=== PATIENT | female | born 1970 | race Caucasian/White ===

== ENCOUNTER 2018-11-11 13:56 | Inpatient (IN) | payer SELFPAY ==
[~2018-11-11] VITALS: Ht 177.8 cm; Wt 137.0 kg
[2018-11-11 14:18] LABS: Urine WBC None Seen /hpf (0 - 5)
[2018-11-11 14:27] LABS: Urine Bacteria NONE SEEN /hpf (None Seen); Urine Blood Negative /uL (Negative); Urine Specific Gravity 1.009 (1.001-1.035)
[2018-11-11] MEDS ORDERED: methylPREDNISolone SOD SUCC 125 MG/2 ML VL IV ONE (14:30)
[2018-11-11] MEDS ORDERED: ASPirin 81 mg TAB PO ONE (14:30)
[2018-11-11 14:54] LABS: Basophils # (auto) 0.2 uL; Basophils % (auto) 1.4 % (0.0-2.0); Eosinophils # (auto) 0.3 uL; Eosinophils % (auto) 2.5 % (0.0-7.0); Hematocrit 44.3 % (36.0-46.0); Hemoglobin 15.3 g/dL (12.2-16.2); Lymphocytes # (auto) 2.3 uL; Lymphocytes % (auto) 21.4 % (10.0-50.0); Mean Corpuscular Hemoglobin 33.9 pg (28.0-32.0); Mean Corpuscular Hgb Conc. 34.6 g/dL (32.0-36.0); Mean Corpuscular Volume 97.8 fL (80.0-100.0); Monocytes # (auto) 0.7 uL; Monocytes % (auto) 6.6 % (0.0-12.0); Neutrophils # (auto) 7.3 uL; Neutrophils % (auto) 68.1 % (37.0-80.0); Nucleated Red Blood Cells % 0.2 %; Platelet Count (auto) 357 10^3/uL (140-450); Red Blood Cells 4.53 10^6/uL (4.0-5.20); Red Cell Distribution Width 13.7 % (11.8-14.3); White Blood Cell 10.7 10^3/uL (4.4-10.8)
[2018-11-11 15:12] LABS: Alanine Aminotransferase 29 U/L (13-56); Albumin 3.4 g/dL (3.4-5.0); Anion Gap 9 (5-15); Blood Urea Nitrogen 13 mg/dL (7-18); Calcium 8.8 mg/dL (8.5-10.1); Carbon Dioxide 25 mmol/L (21-32); Chloride 106 mmol/L (98-107); Glucose 88 mg/dL (74-106); Potassium 3.7 mmol/L (3.5-5.1); Sodium 140 mmol/L (136-145)
[2018-11-11 15:17] LABS: Alkaline Phosphatase 93 U/L (45-117); Aspartate Aminotransferase 25 U/L (15-37); BUN/Creatinine Ratio 15.3; Bilirubin, Total 0.3 mg/dL (0.2-1.0); GFR African American 92 mL/min; GFR Non-African American 76 mL/min; Total Protein 7.4 g/dL (6.4-8.2)
[2018-11-11 15:27] LABS: INR < 0.93 (0.9-1.15); Partial Thromboplastin Time 26.4 sec (23.64-32.05)
[2018-11-11] MEDS ORDERED: IOHEXOL 350 MG/ML 100ML IJ ONE (16:34)
[2018-11-11] MEDS ORDERED: traMADol HCL 50 MG TAB PO PRN (18:00)
[2018-11-11] MEDS ORDERED: NITROGLYCERIN 0.4 MG SL TAB SL PRN (18:00)
[2018-11-11] MEDS ORDERED: MORPHINE SULF INJ 2 MG/ML SYRINGE 1ML IV PRN (18:00)
[2018-11-11] MEDS ORDERED: PROMETHAZINE HCL 25 MG/ML 1ML IV PRN (18:00)
[2018-11-11] MEDS ORDERED: ACETAMINOPHEN 500 MG TAB PO PRN (18:00)
[2018-11-11] MEDS: SODIUM CHLORIDE 0.9% 1,000 ML IV SCH (18:31)
[2018-11-11] MEDS: ENOXAPARIN SOD 40 MG/0.4 ML SYRINGE SC SCH (18:31)
--- NOTE | 2018-11-11 20:45 | NUR ---
Telemetry admit from [facility] PEREZJANENE admitted to Telemetry unit. Patient oriented to Gemma CarusoRN primary RN, unit, room, bed, and unit policies regarding patient care and visiting hours. Patient now on continuous telemetry monitoring, tele box #62 and telemetry reading on arrival to unit is NSR. Patient on room air, ambulatory. A&Ox4, no acute S/S of SOB, distress or pain, weighed by bed scale and encouraged to call if they need something. All questions and concerns addressed, patient verbalized understanding. Bed in lowest locked position, side rails up x 2, call light within reach. Will continue to monitor and continue care.
[2018-11-11 21:03] VITALS: BP 136/92
[2018-11-11 21:26] VITALS: BP 136/92
[2018-11-11 21:43] LABS: Alcohol, Urine < 3.0 mg/dL (0-5); Amphetamine Screen, Urine NEGATIVE (NEGATIVE); Barbiturate Scree,Urine NEGATIVE (NEGATIVE); Benzodiazephine Screen, Urine NEGATIVE (NEGATIVE); Cannabinoid Screen, Urine NEGATIVE (NEGATIVE); Cocaine Screen, Urine NEGATIVE (NEGATIVE); Opiate Scree,Urine NEGATIVE (NEGATIVE); Phencyclidine Screen, Urine NEGATIVE (NEGATIVE)
[2018-11-11] MEDS: methylPREDNISolone SOD SUCC 40 MG/ML VL IV SCH (21:45)
[2018-11-11] MEDS: METOPROLOL TARTRATE 25 MG TAB PO SCH (21:45)
[2018-11-11] MEDS: ATORVASTATIN 20 MG TAB PO SCH (21:47)
[2018-11-11] MEDS: TEMAZEPAM 15 MG CAP PO PRN (23:15)
[2018-11-12] VITALS (7 sets, daily range): BP systolic 127–152; BP diastolic 70–98
[2018-11-12] MEDS: SODIUM CHLORIDE 0.9% 1,000 ML IV SCH ×2 (07:20→20:40)
--- NOTE | 2018-11-12 07:30 | NUR ---
RECEIVED REPORT FROM NIGHT NURSE. PATIENT RESTING IN BED, NO DISTRESS NOTED. WILL CONTINUE TO MONITOR.
[2018-11-12] MEDS: ASPirin 81 mg TAB PO SCH (10:00)
[2018-11-12] MEDS: PANTOPRAZOLE 40 MG TAB PO SCH (10:00)
[2018-11-12] MEDS: NITROGLYCERIN 0.2MG/HR TOPICAL PATCH TD SCH (10:00)
[2018-11-12] MEDS: methylPREDNISolone SOD SUCC 40 MG/ML VL IV SCH (10:00)
[2018-11-12] MEDS: METOPROLOL TARTRATE 25 MG TAB PO SCH ×2 (10:01→21:37)
[2018-11-12 11:34] LABS: Cholesterol 194 mg/dL (< 200); Triglycerides 112 mg/dL (< 150)
[2018-11-12 11:36] LABS: HDL Cholesterol 67 mg/dL (40-59); LDL Cholesterol 114 mg/dL (< 100)
[2018-11-12] MEDS ORDERED: LOSARTAN POTASSIUM 25 MG TAB PO ONE (13:00)
--- NOTE | 2018-11-12 17:30 | NUR ---
PATIENT COMPLAINING OF HEART BURN AFTER EATING LUNCH, SHE STATED THAT AT HOME SHE WOULD DRINK BAKING SODA, AND IS ASKING FOR SOME MEDICATION. PAGED RPG PROGRAMMER HOSPITALIST.
[2018-11-12] MEDS ORDERED: SUCRALFATE 1 GM/10 ML ORAL SUSP PO ONE (17:45)
--- NOTE | 2018-11-12 17:47 | NUR ---
SPOKE TO GUARD MANAGER HOSPITALIST, ORDERS RECEIVED, WILL PLACE AND CARRY OUT.
[2018-11-12] MEDS: ENOXAPARIN SOD 40 MG/0.4 ML SYRINGE SC SCH (17:55)
[2018-11-12] MEDS ORDERED: MILK OF MAGNESIA 30ML SUSP PO PRN (18:00)
[2018-11-12] MEDS: IPRATROPIUM BROM 0.5 MG/2.5ML INH SOL NEB SCH (19:17)
[2018-11-12] MEDS: ALBUTEROL SULF 2.5 MG/0.5ML(0.5%) NEB SOLN NEB SCH (19:17)
--- NOTE | 2018-11-12 19:30 | NUR ---
Opening Shift Note Assumed care of patient, alert and oriented x 4. No S/S of distress/SOB or pain. On room air and ambulatory. NPO after midnight for stress test 11/13. Bed in lowest locked position, side rails up x 2, call light within reach. Instructed on POC and to call for assist PRN, will continue to monitor for changes Q1hr and PRN.
[2018-11-12] MEDS: ATORVASTATIN 20 MG TAB PO SCH (21:36)
[2018-11-12] MEDS: TEMAZEPAM 15 MG CAP PO PRN (21:38)
[2018-11-13] VITALS (7 sets, daily range): BP systolic 101–149; BP diastolic 56–95
[2018-11-13] MEDS: ALBUTEROL SULF 2.5 MG/0.5ML(0.5%) NEB SOLN NEB SCH ×5 (00:39→19:01)
[2018-11-13] MEDS: IPRATROPIUM BROM 0.5 MG/2.5ML INH SOL NEB SCH ×5 (00:39→19:01)
[2018-11-13 06:36] LABS: Calcium 8.8 mg/dL (8.5-10.1); Magnesium 2.7 mg/dL (1.6-2.6); Potassium 4.1 mmol/L (3.5-5.1)
[2018-11-13 06:38] LABS: BUN/Creatinine Ratio 28.2
--- NOTE | 2018-11-13 07:20 | NUR ---
opening note assumed care of patient from bread icer RN. No distress or s/s of shortness of breath. Patient NPO pending stress test. reviewed POC with patient and she verbalized understanding. Bed in lowest position and locked. call light in reach. will continue to monitor
[2018-11-13] MEDS ORDERED: ADENOSINE 115 MG in GIVE UN-DILUTED 0 ML IV ONE (08:30)
--- NOTE | 2018-11-13 08:50 | NUR ---
IV insertion IV access obtained, via clean sterile technique by inserting 22 gauge catheter at left upper arm after 2 attempt(s). IV secured properly. No trauma to site. Patient tolerated well. NOTE: []
--- NOTE | 2018-11-13 09:15 | NUR ---
Patient taken to stress lab.
--- NOTE | 2018-11-13 10:30 | NUR ---
Patient returned to the floor. No distress noted.
[2018-11-13] MEDS: PANTOPRAZOLE 40 MG TAB PO SCH (10:55)
[2018-11-13] MEDS: LOSARTAN POTASSIUM 25 MG TAB PO SCH (10:56)
[2018-11-13] MEDS: ASPirin 81 mg TAB PO SCH (10:57)
[2018-11-13] MEDS: METOPROLOL TARTRATE 25 MG TAB PO SCH ×2 (10:57→21:43)
[2018-11-13] MEDS: SODIUM CHLORIDE 0.9% 1,000 ML IV SCH ×2 (11:00→21:45)
[2018-11-13] MEDS: NITROGLYCERIN 0.2MG/HR TOPICAL PATCH TD SCH (11:02)
[2018-11-13] MEDS: methylPREDNISolone SOD SUCC 40 MG/ML VL IV SCH (11:06)
--- NOTE | 2018-11-13 11:45 | NUR ---
Spoke with Dr Joleen Goodrich spoke with Dr. Newton regarding abnormal stress test results, will schedule patient for heart cath tomorrow, 11/14. Will put in orders per Dr. Goodrich.
[2018-11-13] MEDS ORDERED: SODIUM CHLORIDE 0.9% 1,000 ML IV SCH (12:11)
--- NOTE | 2018-11-13 12:19 | NUR ---
Respiratory note: Pt refusing scheduled medneb tx at this time. No s/s of respiratory distress noted. Pt says she will wait until next scheduled tx. Pt aware to call if she changes her mind.
--- NOTE | 2018-11-13 16:40 | NUR ---
Respiratory note: RT called to bedside, pt changed her mind and requested breathing tx. She says she is feeling really SOB and can't wait until next scheduled tx. HR 74, RR 18, POX 97% on room air. Breath sounds diminished exp wheezing. Medneb tx given, pt tolerated well. Will endorse pt care to noc shift RT.
[2018-11-13] MEDS: ENOXAPARIN SOD 40 MG/0.4 ML SYRINGE SC SCH (18:10)
--- NOTE | 2018-11-13 18:44 | NUR ---
PATIENT ROUNDS PATIENT RESTING IN BED WITH FAMILY AT BEDSIDE. NO S/S OF DISTRESS, NO PAIN NOTED AT THIS TIME. WILL ENDORSE CARE TO RESEARCH QUALITY ASSURANCE ANALYST RN.
--- NOTE | 2018-11-13 19:01 | NUR ---
PT SEEN AND FOR SCHEDULED MED NEB TX AT 1901. PT REFUSED THIS TX AT THIS TIME DUE TO RECEIVING HER LAST TREATMENT LATE. SHE STATED SHE JUST HAD ONE NOT TOO LONG AGO AND WOULD LIKE TO SKIP THIS ONE. PT DISPLAYING NO SIGNS OF DISTRESS. HR 67 RR 18 POX 94% ON ROOM AIR. PT AWARE TO CALL FOR RT IF SHE CHANGES HER MIND OR ANY DISTRESS OCCURS.
--- NOTE | 2018-11-13 19:45 | NUR ---
OPENING SHIFT NOTE RECEIVED REPORT FROM DAYSHIFT RN. PATIENT LYING IN BED WATCHING TELEVISION. NO S/S OF DISTRESS OR SOB. PATIENT A/O X4, AMBULATORY. UPDATED PATIENT ON POC, VERBALIZED UNDERSTANDING. BED LOCKED IN LOW POSITION, CALL LIGHT WITHIN REACH. WILL CONTINUE TO MONITOR PATIENT Q1HR AND PRN.
[2018-11-13] MEDS: ATORVASTATIN 20 MG TAB PO SCH (21:43)
[2018-11-13] MEDS: TEMAZEPAM 15 MG CAP PO PRN (21:43)
[2018-11-14] VITALS (8 sets, daily range): BP systolic 122–163; BP diastolic 63–98
[2018-11-14] MEDS: IPRATROPIUM BROM 0.5 MG/2.5ML INH SOL NEB SCH ×3 (00:40→11:01)
[2018-11-14] MEDS: ALBUTEROL SULF 2.5 MG/0.5ML(0.5%) NEB SOLN NEB SCH ×3 (00:40→11:01)
--- NOTE | 2018-11-14 00:40 | NUR ---
Respiratory note: PT SEEN FOR SCHEDULED MED NEB TX AT 0040. PT REFUSED HER TX AGAIN AT THIS TIME. PT STATED THAT SHE HAS A PROCEDURE TOMORROW AND WOULD LIKE TO SKIP HER TREATMENT AND REST UP FOR HER PROCEDURE. PT WAS SLEEPING WHEN ENTERING THE ROOM WITH NO DISTRESS NOTED. HR 61 RR 16 POX 95% ON ROOM AIR.
--- NOTE | 2018-11-14 05:05 | NUR ---
EKG PERFORMED FOR PREOP AND PLACED IN CHART.
[2018-11-14 06:13] LABS: Basophils # (auto) 0.1 uL; Basophils % (auto) 0.7 % (0.0-2.0); Eosinophils # (auto) 0 uL; Hematocrit 42.3 % (36.0-46.0); Hemoglobin 14.5 g/dL (12.2-16.2); Lymphocytes # (auto) 1.6 uL; Lymphocytes % (auto) 14.5 % (10.0-50.0); Mean Corpuscular Hemoglobin 33.2 pg (28.0-32.0); Mean Corpuscular Hgb Conc. 34.3 g/dL (32.0-36.0); Mean Corpuscular Volume 96.8 fL (80.0-100.0); Monocytes # (auto) 0.6 uL; Monocytes % (auto) 5.7 % (0.0-12.0); Neutrophils # (auto) 8.9 uL; Neutrophils % (auto) 79.1 % (37.0-80.0); Platelet Count (auto) 339 10^3/uL (140-450); Red Blood Cells 4.37 10^6/uL (4.0-5.20); Red Cell Distribution Width 13.4 % (11.8-14.3); White Blood Cell 11.2 10^3/uL (4.4-10.8)
[2018-11-14 06:26] LABS: INR < 0.93 (0.9-1.15); Partial Thromboplastin Time 25.1 sec (23.64-32.05)
[2018-11-14 06:35] LABS: BUN/Creatinine Ratio 26.7; Calcium 8.6 mg/dL (8.5-10.1); Potassium 4.2 mmol/L (3.5-5.1)
--- NOTE | 2018-11-14 07:30 | NUR ---
Opening Shift Note Assumed care of patient, awake and alert X4. No S/S of distress/SOB, no pain noted or reported. Respirations are even and unlabored on RA. Updated on POC and instructed to call for assistance PRN, patient verbalized understanding. Bed locked in lowest position, side rails up x2, call light within reach. Will continue to monitor for changes Q1hr and PRN.
[2018-11-14] MEDS: methylPREDNISolone SOD SUCC 40 MG/ML VL IV SCH (08:14)
[2018-11-14] MEDS: METOPROLOL TARTRATE 25 MG TAB PO SCH (09:18)
[2018-11-14] MEDS: PANTOPRAZOLE 40 MG TAB PO SCH (09:18)
[2018-11-14] MEDS: LOSARTAN POTASSIUM 25 MG TAB PO SCH (09:18)
[2018-11-14] MEDS: ASPirin 81 mg TAB PO SCH (09:18)
[2018-11-14] MEDS: NITROGLYCERIN 0.2MG/HR TOPICAL PATCH TD SCH (10:00)
--- NOTE | 2018-11-14 12:00 | NUR ---
Patient taken to factory laborer for procedure
[2018-11-14] MEDS ORDERED: LIDOCAINE 2%HCL (LOCAL ANESTH.) INJ 20ML MDV ONE (12:55)
[2018-11-14] MEDS ORDERED: IOHEXOL 350 MG/ML 100ML IJ ONE (12:55)
[2018-11-14] MEDS ORDERED: VERAPAMIL 2.5MG/ML INJ 2ML VIAL IV ONE (13:22)
[2018-11-14] MEDS ORDERED: ANGIOMAX 250 MG VIAL IV ONE (13:22)
[2018-11-14] MEDS ORDERED: fentaNYL CITRATE 100 MCG/2 ML VL ONE (13:22)
[2018-11-14] MEDS ORDERED: MIDAZOLAM HCL 1MG/1ML-2 ML VIAL ONE (13:23)
[2018-11-14] MEDS ORDERED: SODIUM CHL 0.9% 0 ML ONE (13:23)
[2018-11-14] MEDS ORDERED: HEPARIN SODIUM (PORCINE) 5000 UNITS/ML 1ML VIAL ONE (13:52)
--- NOTE | 2018-11-14 15:05 | NUR ---
Patient back from procedure. No S/S of distress.
[2018-11-14] MEDS: SODIUM CHLORIDE 0.9% 1,000 ML IV SCH (16:21)
--- NOTE | 2018-11-14 17:16 | NUR ---
POST CATH VITAL SIGNS SEE MAR
[2018-11-14] MEDS: ENOXAPARIN SOD 40 MG/0.4 ML SYRINGE SC SCH (17:35)
--- NOTE | 2018-11-14 17:45 | NUR ---
VASC BAND REMOVAL REMOVED 2ML OF AIR EVERY 15 MINUTES AFTER THE FIRST HOUR ON THE FLOOR. BAND FULLY DEFLATED AND REMOVED. NO SIGNS OF SWELLING OR BLEEDING NOTED. PLACED GAUZE AND TEGADERM BANDAGE OVER PUNCTURE SITE. PATIENT TOLERATED WELL. PATIENT ALSO EDUCATED PER VASC BAND REMOVAL INSTRUCTIONS, PATIENT VERBALIZED UNDERSTANDING.
--- NOTE | 2018-11-14 18:06 | NUR ---
SPOKE WITH DR. OLSON REGARDING DISCHARGE ORDERED. MD AWARE THAT PATIENTS VITALS ARE STABLE, NO BLEEDING FROM SURGICAL INCISION. RECEIVED ORDERS TO CALL IN BLOOD PRESSURE MEDICATIONS, WILL FOLLOW THROUGH WITH ORDERS AND DISCHARGE PATIENT HOME.
== END 2018-11-14 18:45 | disposition home or self-care (01) | DRG 287 ==
LOC: ER 14:01 → TELE 14:02 → TELE-WESTW 20:20
PROVIDERS: ADMIT Internal Medicine; ATTEND Internal Medicine
PROC: B2111ZZ Fluoroscopy of Multiple Coronary Arteries using Low Osmolar Contrast (ICD-10-PCS; principal; 2018-11-11)
PROC: 4A023N7 Measurement of Cardiac Sampling and Pressure, Left Heart, Percutaneous Approach (ICD-10-PCS; 2018-11-11)
PROC: B2151ZZ Fluoroscopy of Left Heart using Low Osmolar Contrast (ICD-10-PCS; 2018-11-11)
DX: I25.10 Atherosclerotic heart disease of native coronary artery without angina pectoris (principal); Z68.41 Body mass index [BMI] 40.0-44.9, adult; I10 Essential (primary) hypertension; H40.9 Unspecified glaucoma; M32.9 Systemic lupus erythematosus, unspecified; M06.9 Rheumatoid arthritis, unspecified; K57.90 Diverticulosis of intestine, part unspecified, without perforation or abscess without bleeding; F17.210 Nicotine dependence, cigarettes, uncomplicated; E66.01 Morbid (severe) obesity due to excess calories; Z88.1 Allergy status to other antibiotic agents; Z88.2 Allergy status to sulfonamides; Z88.5 Allergy status to narcotic agent; Z82.49 Family history of ischemic heart disease and other diseases of the circulatory system; Z80.9 Family history of malignant neoplasm, unspecified
CPT/HCPCS: 36415; 71275; 78452; 80048; 80053; 80061; 80307; 81001; 82550; 83036; 83735; 83880; 84443; 84484; 84702; 85025; 85610; 85652; 85730; 86141; 86850; 86900; 86901; 93005; 93017; 93306; 94640; G0378; J0153; J2250

== ENCOUNTER 2018-12-11 01:02 | Inpatient (IN) | payer SELFPAY ==
[~2018-12-11] VITALS: Ht 177.8 cm; Wt 132.4 kg
[2018-12-11 01:45] LABS: Basophils # (auto) 0.1 uL; Eosinophils # (auto) 0.3 uL; Eosinophils % (auto) 1.9 % (0.0-7.0); Hemoglobin 14.1 g/dL (12.2-16.2); Lymphocytes # (auto) 1.7 uL; Lymphocytes % (auto) 11.2 % (10.0-50.0); Mean Corpuscular Hemoglobin 33.3 pg (28.0-32.0); Mean Corpuscular Hgb Conc. 34.3 g/dL (32.0-36.0); Mean Corpuscular Volume 97.3 fL (80.0-100.0); Monocytes # (auto) 0.9 uL; Monocytes % (auto) 6.3 % (0.0-12.0); Neutrophils % (auto) 79.6 % (37.0-80.0); Platelet Count (auto) 326 10^3/uL (140-450); Red Blood Cells 4.22 10^6/uL (4.0-5.20); Red Cell Distribution Width 13.2 % (11.8-14.3)
[2018-12-11 02:02] LABS: Albumin 3.1 g/dL (3.4-5.0); BUN/Creatinine Ratio 15.6; Calcium 8.6 mg/dL (8.5-10.1); Potassium 3.8 mmol/L (3.5-5.1)
[2018-12-11 02:04] LABS: Bilirubin, Total 0.4 mg/dL (0.2-1.0); Total Protein 6.9 g/dL (6.4-8.2)
[2018-12-11] MEDS ORDERED: metroNIDAZOLE 500 MG TAB PO ONE (02:15)
[2018-12-11] MEDS ORDERED: MORPHINE SULFATE 4 MG/ML SYR/VIAL IV ONE (02:15)
[2018-12-11] MEDS ORDERED: cefTRIAXone 1GM/50ML D5W 50 ML IV ONE (02:15)
[2018-12-11] MEDS ORDERED: ONDANSETRON HCL 4 MG/2 ML VIAL IV ONE (02:15)
[2018-12-11 02:33] LABS: Urine Bacteria FEW /hpf (None Seen); Urine Blood Negative /uL (Negative); Urine Specific Gravity 1.012 (1.001-1.035); Urine WBC 2 /hpf (0 - 5)
[2018-12-11] MEDS ORDERED: MORPHINE SULFATE 4 MG/ML SYR/VIAL IV PRN (03:00)
--- NOTE | 2018-12-11 04:47 | NUR ---
MS admit from ER CHRISJANENE admitted to tele/MS after SBAR received. Patient oriented to VON NGUYỄN, DANIAL primary RN, west unit, 271 room, B bed, and unit policies regarding patient care and visiting hours. Patient weighed by bedscale and encouraged to call if they need something. All questions and concerns addressed, patient verbalized understanding.
[2018-12-11 05:00] VITALS: BP 135/93
[2018-12-11] MEDS: D5W/SOD CHLO 0.9% 1,000 ML IV SCH ×2 (05:04→17:10)
[2018-12-11] MEDS ORDERED: NORPTMEDS (06:01)
[2018-12-11] MEDS: cefTRIAXone 1GM/50ML D5W 50 ML IV SCH (08:41)
[2018-12-11] MEDS: ONDANSETRON HCL 4 MG/2 ML VIAL IV PRN ×2 (08:42→12:46)
--- NOTE | 2018-12-11 08:42 | NUR ---
Patient stated her stomach pain level at 10/10 at this time, nauseous. Morphine Sulf Inj 2 mg given for pain, Zofran Inj given for nausea.
[2018-12-11] MEDS: FAMOTIDINE 20 MG TAB PO SCH ×2 (08:46→21:34)
[2018-12-11 08:58] VITALS: BP 144/87
[2018-12-11] MEDS: traMADol HCL 50 MG TAB PO PRN (10:49)
--- NOTE | 2018-12-11 10:49 | NUR ---
Patient with facial grimacing noted, stated her stomach pain level at 10/10. Ultram PO given with sips of water for pain.
--- NOTE | 2018-12-11 11:20 | NUR ---
Philip Garcia at bedside. ordered Clear Liquid Diet, Morphine Sulf Inj 2 mg Q4 for severe pain and Zofran Q4.
[2018-12-11 12:35] VITALS: BP 125/85
[2018-12-11] MEDS: ACETAMINOPHEN 325 MG TAB PO PRN (12:46)
--- NOTE | 2018-12-11 12:46 | NUR ---
Zofran Inj given for nausea, Tylenol PO given for headache and Temp = 100.2 F.
[2018-12-11] MEDS: metroNIDAZOLE 500MG/100ML 100 ML IV SCH ×2 (13:05→21:34)
--- NOTE | 2018-12-11 15:40 | NUR ---
Patient MRSA Nares (+) as per Microbiology. Informed Charge Nurse Val.
[2018-12-11 16:08] VITALS: BP 113/69
[2018-12-11] MEDS: MORPHINE SULF INJ 2 MG/ML SYRINGE 1ML IV PRN ×2 (17:10→21:35)
--- NOTE | 2018-12-11 17:10 | NUR ---
Patient stated her pain level at 7/10 at this time. Morphine Sulf Inj given for pain as ordered.
[2018-12-11 20:00] VITALS: BP 125/79
--- NOTE | 2018-12-11 21:00 | NUR ---
Opening Shift Note Assumed care of patient, awake and alert. No S/S of distress/SOB. Patient complain of pain 6/10 but wanted to wait on her pain med till her 2200 meds. Instructed on POC and to call for assist PRN, will continue to monitor for changes Q1hr and PRN.
[2018-12-11 21:34] VITALS: BP 125/79
[2018-12-11] MEDS: TEMAZEPAM 15 MG CAP PO PRN (21:34)
[2018-12-12 05:30] VITALS: BP 110/67
[2018-12-12] MEDS: metroNIDAZOLE 500MG/100ML 100 ML IV SCH ×3 (05:30→21:31)
[2018-12-12] MEDS: MORPHINE SULF INJ 2 MG/ML SYRINGE 1ML IV PRN ×4 (05:31→20:50)
[2018-12-12] MEDS: D5W/SOD CHLO 0.9% 1,000 ML IV SCH ×2 (06:00→19:00)
[2018-12-12 06:03] LABS: Basophils # (auto) 0.1 uL; Basophils % (auto) 0.4 % (0.0-2.0); Eosinophils # (auto) 0.1 uL; Eosinophils % (auto) 0.9 % (0.0-7.0); Hematocrit 38.1 % (36.0-46.0); Hemoglobin 12.8 g/dL (12.2-16.2); Lymphocytes # (auto) 1.2 uL; Lymphocytes % (auto) 8.7 % (10.0-50.0); Mean Corpuscular Hemoglobin 33.3 pg (28.0-32.0); Mean Corpuscular Hgb Conc. 33.7 g/dL (32.0-36.0); Monocytes % (auto) 7.4 % (0.0-12.0); Neutrophils # (auto) 11.6 uL; Neutrophils % (auto) 82.6 % (37.0-80.0); Platelet Count (auto) 333 10^3/uL (140-450); Red Blood Cells 3.85 10^6/uL (4.0-5.20); Red Cell Distribution Width 13.6 % (11.8-14.3)
[2018-12-12 06:25] LABS: BUN/Creatinine Ratio 12.5; Calcium 8.6 mg/dL (8.5-10.1); Potassium 3.5 mmol/L (3.5-5.1)
[2018-12-12 08:08] VITALS: BP 123/65
--- NOTE | 2018-12-12 08:08 | NUR ---
Opening Shift Note Assumed care of patient, awake and alert. No S/S of distress/SOB. Patient complaint of 7/10 pain in left lower abdomen. Will medicate patient for pain per MD order. Instructed on POC and to call for assist PRN, will continue to monitor for changes Q1hr and PRN.
[2018-12-12 09:00] VITALS: BP 123/65
[2018-12-12] MEDS: cefTRIAXone 1GM/50ML D5W 50 ML IV SCH (09:15)
[2018-12-12] MEDS: FAMOTIDINE 20 MG TAB PO SCH ×2 (09:58→21:32)
--- NOTE | 2018-12-12 10:15 | NUR ---
Dr. Phillip at bedside with patient.
[2018-12-12 13:00] VITALS: BP 122/66
[2018-12-12] MEDS: LACTULOSE 20Gm/30ML SOLN PO PRN (13:08)
--- NOTE | 2018-12-12 13:30 | NUR ---
Patient is off the unit to smoke. Patient signed AMA form and is aware of risks of smoking. AMA form located in patient's chart.
--- NOTE | 2018-12-12 13:45 | NUR ---
Patient is back on the unit. Patient has no signs or symptoms of respiratory distress. Patient has complaint of nausea. Patient refused nausea medication at this time. Patient reports 4/10 pain on and off pain in her left abdomen. Patient states that the pain is tolerable. Will continue to monitor patient.
[2018-12-12 17:08] VITALS: BP 116/67
--- NOTE | 2018-12-12 18:45 | NUR ---
Closing Shift Note Patient is resting in bed. No distress noted. Will give report and endorse care to the night time nanny RN.
--- NOTE | 2018-12-12 19:30 | NUR ---
RECEIVED PATIENT IN BED, AAOX4. NO DISTRESS NOTED. INTRODUCED MYSELF TO THE PATIENT. ORIENTATION DONE. AFEBRILE. NO SOB NOTED. ABDOMINAL PAIN NOTED. WILL MEDICATE PATIENT. POCS DISCUSSED WITH PATIENT AND SHOWED UNDERSTANDING. BED KEPT ON LOWEST POSITION. SIDE RAILS UP. CALL LIGHT/TABLE IN REACH. KEPT COMFORTABLE.
[2018-12-12] MEDS: TEMAZEPAM 15 MG CAP PO PRN (20:49)
[2018-12-12] MEDS: MUPIROCIN 2% OINT 15gm or 22gm EACHNOSTRI SCH (21:31)
[2018-12-12 21:48] VITALS: BP 125/82
[2018-12-13] MEDS: MORPHINE SULF INJ 2 MG/ML SYRINGE 1ML IV PRN ×3 (03:07→15:59)
[2018-12-13 05:30] VITALS: BP 118/73
[2018-12-13] MEDS: metroNIDAZOLE 500MG/100ML 100 ML IV SCH ×3 (05:58→23:55)
--- NOTE | 2018-12-13 06:12 | NUR ---
ON BED, ASLEEP. NO DISTRESS NOTED. FOR MORE CARE AND MANAGEMENT.
[2018-12-13 08:04] VITALS: BP 106/46
--- NOTE | 2018-12-13 08:04 | NUR ---
Opening Shift Note Assumed care of patient, awake and alert. No S/S of distress/SOB. Patient reports 7/10 pain in left abdomen. Will medicate patient for pain per MD order. Instructed on POC and to call for assist PRN, will continue to monitor for changes Q1hr and PRN.
[2018-12-13] MEDS: D5W/SOD CHLO 0.9% 1,000 ML IV SCH ×2 (08:20→23:55)
[2018-12-13 09:00] VITALS: BP 106/46
--- NOTE | 2018-12-13 09:18 | NUR ---
Dr. Phillip at bedside discussing plan of care with patient.
[2018-12-13] MEDS: FAMOTIDINE 20 MG TAB PO SCH ×2 (09:45→23:23)
[2018-12-13] MEDS: MUPIROCIN 2% OINT 15gm or 22gm EACHNOSTRI SCH ×2 (09:46→23:22)
[2018-12-13] MEDS: cefTRIAXone 1GM/50ML D5W 50 ML IV SCH (09:49)
--- NOTE | 2018-12-13 09:50 | NUR ---
Dr. Ferrara at bedside with patient discussing plan of care.
--- NOTE | 2018-12-13 10:10 | NUR ---
Holding patient discharge at this time per Dr. Ferrara and per Dr. Phillip due to pending CT scan of abdomen with contrast.
--- NOTE | 2018-12-13 11:00 | NUR ---
20 gauge IV placed in patient's left forearm for CT scan of abdomen with contrast.
[2018-12-13] MEDS: ONDANSETRON HCL 4 MG/2 ML VIAL IV PRN (11:07)
[2018-12-13] MEDS ORDERED: IOHEXOL 300 MG/ML 100ML BOTTLE IJ ONE (12:12)
--- NOTE | 2018-12-13 12:50 | NUR ---
Patient down to CT.
[2018-12-13 13:00] VITALS: BP 132/95
--- NOTE | 2018-12-13 13:30 | NUR ---
Patient back on unit. Patient has no signs of respiratory distress and denies nausea. Patient states she does not need pain medicine.
--- NOTE | 2018-12-13 13:34 | NUR ---
Page to Dr. Ferrara Page to Dr. Ferrara regarding patient's CT of the abdomen. Awaiting callback.
--- NOTE | 2018-12-13 13:38 | NUR ---
Call back from Dr. Ferrara Call back from Dr. Ferrara at this time. Dr. Ferrara aware of patient's imaging results. Per Dr. Ferrara, patient should stay one more day. Will notify Dr. Phillip.
--- NOTE | 2018-12-13 13:40 | NUR ---
Call to Dr. Phillip No answer from Dr. Phillip at this time. Left a message to update on patient's condition and to notify of Dr. Ferrara's recommendation. Awaiting call back.
--- NOTE | 2018-12-13 13:47 | NUR ---
Call back from Dr. Phillip Spoke with Dr. Phillip at this time. Read results of CT abdomen/pelvis. Discharge to be cancelled. New orders given.
[2018-12-13 17:00] VITALS: BP 146/93
--- NOTE | 2018-12-13 17:48 | NUR ---
Call from Dr. Ferrara Spoke with Dr. Ferrara at this time. Due to CT results, patient is back on clear liquid diet. Will notify patient.
--- NOTE | 2018-12-13 19:04 | NUR ---
Closing Shift Note Patient is resting in bed. No distress noted. Will give report and endorse care to the shift supervisor film processing RN.
[2018-12-13 22:00] VITALS: BP 125/77
[2018-12-13] MEDS: TEMAZEPAM 15 MG CAP PO PRN (23:23)
[2018-12-13] MEDS: traMADol HCL 50 MG TAB PO PRN (23:24)
[2018-12-14 05:00] VITALS: BP 104/68
[2018-12-14 06:23] LABS: Basophils # (auto) 0.1 uL; Basophils % (auto) 0.7 % (0.0-2.0); Eosinophils # (auto) 0.3 uL; Eosinophils % (auto) 3.2 % (0.0-7.0); Hematocrit 37.2 % (36.0-46.0); Hemoglobin 12.4 g/dL (12.2-16.2); Lymphocytes # (auto) 1.3 uL; Lymphocytes % (auto) 13.4 % (10.0-50.0); Mean Corpuscular Hemoglobin 32.8 pg (28.0-32.0); Mean Corpuscular Hgb Conc. 33.4 g/dL (32.0-36.0); Mean Corpuscular Volume 98.4 fL (80.0-100.0); Monocytes # (auto) 0.8 uL; Monocytes % (auto) 7.9 % (0.0-12.0); Neutrophils # (auto) 7.1 uL; Neutrophils % (auto) 74.8 % (37.0-80.0); Platelet Count (auto) 376 10^3/uL (140-450); Red Blood Cells 3.78 10^6/uL (4.0-5.20); Red Cell Distribution Width 13.5 % (11.8-14.3); White Blood Cell 9.5 10^3/uL (4.4-10.8)
[2018-12-14] MEDS: metroNIDAZOLE 500MG/100ML 100 ML IV SCH ×3 (06:41→21:27)
[2018-12-14] MEDS: traMADol HCL 50 MG TAB PO PRN (06:42)
[2018-12-14] MEDS: LACTULOSE 20Gm/30ML SOLN PO PRN (06:46)
--- NOTE | 2018-12-14 07:20 | NUR ---
Opening Shift Note Assumed care of patient, awake and alert. No S/S of distress/SOB or pain. Instructed on POC and to call for assist PRN, will continue to monitor for changes Q1hr and PRN. Bed locked in lowest position with two side rails up and call light in reach.
[2018-12-14 08:00] VITALS: BP 123/80
[2018-12-14 09:00] VITALS: BP 123/80
[2018-12-14] MEDS: cefTRIAXone 1GM/50ML D5W 50 ML IV SCH (09:45)
[2018-12-14] MEDS: FAMOTIDINE 20 MG TAB PO SCH ×2 (09:45→21:26)
[2018-12-14] MEDS: MUPIROCIN 2% OINT 15gm or 22gm EACHNOSTRI SCH ×2 (09:46→21:27)
[2018-12-14] MEDS: D5W/SOD CHLO 0.9% 1,000 ML IV SCH (11:18)
--- NOTE | 2018-12-14 11:21 | NUR ---
DR SHANELLE PERALTA
[2018-12-14 13:00] VITALS: BP 149/92
[2018-12-14 17:00] VITALS: BP 153/83
--- NOTE | 2018-12-14 17:33 | NUR ---
assessment Patient is a 48 year old female who is alert and oriented. Patient has no insurance per census. Patient informed me she has IHEP and family will bring in her insurance card. Patient informed me prior to admission patient lived home with family and functioned independently. Patient informed me she is able to care for her own ADLs. Per patient she will return home to her prior living arrangements post discharge and family will transport her home. Patients PCP is Dr Galarza. Patient feels safe returning home on discharge. Patient has no post discharge needs as of now. I informed patient she has a right to speak to a director social regarding all care. I informed patient she has a right to participate in any and all discharge planning. Patient does not have a POA and advanced directive. I have offered patient information on POA and advanced directives. I informed the patient the advantages and benefits of having an Advanced Directive. Patient verbalized understanding and agreed to discharge plan. Addendum: 12/14/18 at 1736 by Bibi URENA Amended: Links added.
--- NOTE | 2018-12-14 19:35 | NUR ---
IV removal/ IV insertion IV at the left forearm noted to be infiltrated. IV DC'd with clean sterile technique, catheter fully intact. Pressure dressing applied to site. IV access obtained, via clean sterile technique by inserting 22 gauge catheter at left AC after 1 attempt. IV secured properly. No trauma to site. Patient tolerated well.
--- NOTE | 2018-12-14 19:35 | NUR ---
Opening Shift Note Report received from day shift RN. Assumed care of patient. Patient awake sitting in bed and alert x4. No S/S of distress/SOB noted. Patient states having tolerable abdominal pain 4/10 on a numerical scale. Bed locked in lowest position with side rails up x2 and call light left within reach. Instructed on POC and to call for assist PRN, will continue to monitor for changes Q1hr and PRN.
[2018-12-14] MEDS: TEMAZEPAM 15 MG CAP PO PRN (21:37)
[2018-12-14 22:00] VITALS: BP 135/75
[2018-12-15] MEDS: D5W/SOD CHLO 0.9% 1,000 ML IV SCH ×2 (00:20→13:00)
[2018-12-15 04:56] VITALS: BP 115/71
[2018-12-15] MEDS: metroNIDAZOLE 500MG/100ML 100 ML IV SCH (05:26)
[2018-12-15 08:00] VITALS: BP 137/87
--- NOTE | 2018-12-15 08:00 | NUR ---
Received pt resting in bed, call light with in reach, pt reports pain and burning on lower abdomen area 07/30, will medicate pt as order.
[2018-12-15] MEDS: ACETAMINOPHEN 325 MG TAB PO PRN (08:16)
[2018-12-15] MEDS: FAMOTIDINE 20 MG TAB PO SCH (08:16)
[2018-12-15] MEDS: MUPIROCIN 2% OINT 15gm or 22gm EACHNOSTRI SCH (08:18)
[2018-12-15] MEDS: cefTRIAXone 1GM/50ML D5W 50 ML IV SCH (08:18)
[2018-12-15 09:00] VITALS: BP 137/87
--- NOTE | 2018-12-15 09:30 | NUR ---
Dr. Phillip at bed side to see pt, doctor discussed the plan of care with pt.
[2018-12-15] MEDS ORDERED: HYOSCYAMINE SULF 0.125 MG ODT TAB PO PRN (10:30)
--- NOTE | 2018-12-15 13:05 | NUR ---
Discharge instructions given as ordered. Encourage to follow up with PMD and GI as instructed. All questions and concerns addressed. Patient verbalized understanding. Medication reconciliation form completed and copy given to patient. No home medications held in Pharmacy, and no needed vaccines to be given. IV removed with catheter intact, pressure dressing applied.
--- NOTE | 2018-12-15 13:20 | NUR ---
Patient taken to vehicle via wheelchair with all personal belongings, accompanied by staff and family member. No distress noted at time of departure.
== END 2018-12-15 13:20 | disposition home or self-care (01) | DRG 872 ==
LOC: EDBD 01:02 → ER 01:04 → WEST WING 01:05
PROVIDERS: ADMIT Nurse Practitioner; ATTEND Family Medicine
DX: A41.9 Sepsis, unspecified organism (principal); Z68.41 Body mass index [BMI] 40.0-44.9, adult; K57.32 Diverticulitis of large intestine without perforation or abscess without bleeding; E66.01 Morbid (severe) obesity due to excess calories; F17.210 Nicotine dependence, cigarettes, uncomplicated; E78.5 Hyperlipidemia, unspecified; H40.9 Unspecified glaucoma; I10 Essential (primary) hypertension; K59.00 Constipation, unspecified; A49.02 Methicillin resistant Staphylococcus aureus infection, unspecified site; M06.9 Rheumatoid arthritis, unspecified; M32.9 Systemic lupus erythematosus, unspecified; Z88.1 Allergy status to other antibiotic agents; Z88.5 Allergy status to narcotic agent; Z83.3 Family history of diabetes mellitus; Z88.2 Allergy status to sulfonamides; Z80.3 Family history of malignant neoplasm of breast; Z82.49 Family history of ischemic heart disease and other diseases of the circulatory system
CPT/HCPCS: 36415; 74176; 74177; 80048; 80053; 81001; 81025; 83690; 85025; 87040; 87081; G0378; J0696; J2405; J3490; J7042

== ENCOUNTER 2020-06-11 03:44 | Emergency (ER) | payer SELFPAY ==
[~2020-06-11] VITALS: Ht 177.8 cm; Wt 117.9 kg
[~2020-06-11 03:44] MED LIST: NORPTMEDS
[2020-06-11 06:38] LABS: Basophils # (auto) 0 10 ^3/uL (0-0.2); Basophils % (auto) 0.2 % (0.0-2.0); Eosinophils # (auto) 0.4 10 ^3/uL (0-0.8); Eosinophils % (auto) 3.8 % (0.0-7.0); Hematocrit 43.4 % (36.0-46.0); Mean Corpuscular Hemoglobin 33.7 pg (28.0-32.0); Mean Corpuscular Hgb Conc. 34.5 g/dL (32.0-36.0); Mean Corpuscular Volume 97.9 fL (80.0-100.0); Monocytes # (auto) 0.6 10 ^3/uL (0-1.3); Monocytes % (auto) 6.1 % (0.0-12.0); Neutrophils # (auto) 6.6 10 ^3/uL (1.6-8.6); Neutrophils % (auto) 68.9 % (37.0-80.0); Nucleated Red Blood Cells % 0.1 %; Platelet Count (auto) 393 10^3/uL (140-450); Red Blood Cells 4.43 10^6/uL (4.0-5.20); Red Cell Distribution Width 13.9 % (11.8-14.3); White Blood Cell 9.6 10^3/uL (4.4-10.8)
[2020-06-11] MEDS ORDERED: cloNIDine HCL 0.1 MG TAB PO ONE (06:45)
[2020-06-11 06:51] LABS: Alanine Aminotransferase 31 U/L (13-56); Albumin 3.4 g/dL (3.4-5.0); Anion Gap 6 (5-15); Aspartate Aminotransferase 15 U/L (15-37); BUN/Creatinine Ratio 23.1; Blood Urea Nitrogen 15 mg/dL (7-18); Calcium 8.6 mg/dL (8.5-10.1); Carbon Dioxide 25 mmol/L (21-32); Chloride 106 mmol/L (98-107); GFR African American 125 mL/min; GFR Non-African American 103 mL/min; Glucose 88 mg/dL (74-106); Potassium 3.8 mmol/L (3.5-5.1); Sodium 137 mmol/L (136-145)
[2020-06-11 06:59] LABS: Alkaline Phosphatase 90 U/L (45-117); Bilirubin, Total 0.4 mg/dL (0.2-1.0); Total Protein 7.5 g/dL (6.4-8.2)
[2020-06-11] MEDS ORDERED: IBUPROFEN 800 MG TAB PO ONE (07:00)
[2020-06-11 07:04] LABS: INR 0.97 (0.9-1.15); Partial Thromboplastin Time 26.9 sec (23.0-31.2)
[2020-06-11 07:51] VITALS: BP 130/88
== END 2020-06-11 08:01 | disposition home or self-care (01) ==
LOC: ER 03:46
DX: I10 Essential (primary) hypertension (principal); R07.81 Pleurodynia; M79.18 Myalgia, other site; F17.210 Nicotine dependence, cigarettes, uncomplicated; Z88.1 Allergy status to other antibiotic agents; Z88.2 Allergy status to sulfonamides; Z88.8 Allergy status to other drugs, medicaments and biological substances
CPT/HCPCS: 36415; 71250; 80053; 83735; 83880; 84443; 84484; 85025; 85379; 85610; 85730; 93005